=== PATIENT | female | born 1985 | race Two or more races ===

== ENCOUNTER 2017-03-27 07:29 | Inpatient (IN) | payer OTHER ==
[~2017-03-27] VITALS: Ht 157.5 cm; Wt 83.4 kg
[~2017-03-27 07:29] MED LIST: Pantoprazole Sodium Sesquihydr PO
[2017-03-27 08:06] LABS: Basophils # (auto) 0.1 uL; Basophils % (auto) 0.6 % (0.0-2.0); Eosinophils # (auto) 0.1 uL; Eosinophils % (auto) 0.7 % (0.0-7.0); Hematocrit 41.5 % (36.0-46.0); Hemoglobin 14.3 g/dL (12.2-16.2); Lymphocytes % (auto) 21.6 % (10.0-50.0); Mean Corpuscular Hgb Conc. 34.3 g/dL (32.0-36.0); Mean Corpuscular Volume 87.6 fL (80.0-100.0); Mean Platelet Volume 8.1 fL (6.9-10.8); Monocytes # (auto) 0.6 uL; Monocytes % (auto) 6.7 % (0.0-12.0); Neutrophils # (auto) 6.6 uL; Neutrophils % (auto) 70.4 % (37.0-80.0); Platelet Count (auto) 368 10^3/uL (140-450); Red Cell Distribution Width 12.7 % (11.8-14.3); White Blood Cell 9.3 10^3/uL (4.4-10.8)
[2017-03-27 08:14] LABS: Urine Bilirubin Negative (Negative); Urine Blood Negative /uL (Negative); Urine Color Yellow (Yellow); Urine Glucose Normal (Normal); Urine Ketone Negative (Negative); Urine Mucus FEW (None Seen); Urine Nitrite Negative (Negative); Urine RBC 4 /hpf (0 - 4); Urine Squamous Epithelial Cell MOD /hpf (<5); Urine Urobilinogen Normal (Negative); Urine pH 5.5 (5.0-8.0)
[2017-03-27] MEDS ORDERED: SODIUM CHLORIDE 0.9% 1,000 ML IVB ONE (08:14)
[2017-03-27] MEDS ORDERED: NALBUPHINE HCL 10 MG/1ml INJECTION IV ONE (08:15)
[2017-03-27] MEDS ORDERED: SODIUM CHLORIDE 0.9% 1,000 ML IV ONE (08:15)
[2017-03-27] MEDS ORDERED: PROMETHAZINE HCL 25 MG/ML 1ML IV ONE (08:15)
[2017-03-27 08:26] LABS: Albumin 3.8 g/dL (3.4-5.0); BUN/Creatinine Ratio 11.4; Bilirubin, Total 0.3 mg/dL (0.2-1.0); Calcium 9.1 mg/dL (8.5-10.1); Potassium 3.5 mmol/L (3.5-5.1); Total Protein 8.5 g/dL (6.4-8.2)
[2017-03-27] MEDS ORDERED: cefTRIAXone 1GM/50ML D5W 50 ML IV ONE (08:45)
[2017-03-27] MEDS ORDERED: PROCHLORPERAZINE EDISYLATE 5 MG/ML 2ML VIAL ONE (09:12)
[2017-03-27] MEDS ORDERED: PROCHLORPERAZINE EDISYLATE 5 MG/ML 2ML VIAL IV ONE ×2 (09:15→12:15)
[2017-03-27] MEDS ORDERED: TEMAZEPAM 15 MG CAP PO PRN (13:45)
[2017-03-27] MEDS ORDERED: LORazepam 0.5 MG TAB PO PRN (13:45)
[2017-03-27] MEDS ORDERED: ACETAMINOPHEN 500 MG TAB PO PRN (13:45)
[2017-03-27] MEDS: SODIUM CHLORIDE 0.9% 1,000 ML IV SCH ×2 (13:49→23:45)
[2017-03-27] MEDS: FAMOTIDINE (10MG/ML) 2ML VL IV SCH ×2 (13:52→23:46)
[2017-03-27 16:00] VITALS: BP 130/68
[2017-03-27 16:13] VITALS: BP 130/68
[2017-03-27] MEDS: metroNIDAZOLE 500MG/100ML 100 ML IV SCH ×2 (17:44→23:46)
[2017-03-27] MEDS: MORPHINE SULF INJ 2 MG/ML SYRINGE 1ML IV PRN (17:46)
[2017-03-27] MEDS: PROMETHAZINE HCL 25 MG/ML 1ML IV PRN (17:47)
[2017-03-27 22:00] VITALS: BP 121/74
[2017-03-28 05:00] VITALS: BP 95/55
[2017-03-28 05:23] LABS: Basophils # (auto) 0 uL; Basophils % (auto) 0.3 % (0.0-2.0); Eosinophils # (auto) 0 uL; Eosinophils % (auto) 0.1 % (0.0-7.0); Hematocrit 35.5 % (36.0-46.0); Hemoglobin 12.2 g/dL (12.2-16.2); Lymphocytes # (auto) 1.7 uL; Lymphocytes % (auto) 16.6 % (10.0-50.0); Mean Corpuscular Hemoglobin 30.1 pg (28.0-32.0); Mean Corpuscular Hgb Conc. 34.2 g/dL (32.0-36.0); Mean Corpuscular Volume 87.9 fL (80.0-100.0); Mean Platelet Volume 8.1 fL (6.9-10.8); Monocytes # (auto) 0.8 uL; Monocytes % (auto) 7.9 % (0.0-12.0); Neutrophils # (auto) 7.6 uL; Neutrophils % (auto) 75.1 % (37.0-80.0); Platelet Count (auto) 303 10^3/uL (140-450); Red Cell Distribution Width 12.4 % (11.8-14.3); White Blood Cell 10.1 10^3/uL (4.4-10.8)
[2017-03-28 05:42] LABS: BUN/Creatinine Ratio 16.2; Bilirubin, Total 0.6 mg/dL (0.2-1.0); Calcium 8.1 mg/dL (8.5-10.1); Potassium 3.2 mmol/L (3.5-5.1); Total Protein 6.5 g/dL (6.4-8.2)
[2017-03-28] MEDS: metroNIDAZOLE 500MG/100ML 100 ML IV SCH ×3 (06:19→18:23)
[2017-03-28 08:32] VITALS: BP 109/70
[2017-03-28] MEDS: cefTRIAXone 1GM/50ML D5W 50 ML IV SCH (09:14)
[2017-03-28] MEDS: MORPHINE SULF INJ 2 MG/ML SYRINGE 1ML IV PRN ×4 (09:14→22:47)
[2017-03-28] MEDS: PROMETHAZINE HCL 25 MG/ML 1ML IV PRN ×4 (09:14→22:47)
[2017-03-28] MEDS: SODIUM CHLORIDE 0.9% 1,000 ML IV SCH ×2 (09:39→19:39)
[2017-03-28] MEDS ORDERED: POTASSIUM CHLORIDE 20 MEQ, LIDOCAINE 1% (LOCAL ANESTH.) 2 ML in SODIUM CHL 0.9% 100 ML IV ONE (10:30)
[2017-03-28] MEDS: FAMOTIDINE (10MG/ML) 2ML VL IV SCH (13:45)
[2017-03-28 14:35] VITALS: BP 94/57
[2017-03-28] MEDS ORDERED: GOLYTELY 4L KIT PO ONE (16:00)
[2017-03-28] MEDS: HYDROcodone-ACET 5/325MG TAB PO PRN (16:52)
[2017-03-28 18:01] VITALS: BP 98/64
[2017-03-28] MEDS: PANTOPRAZOLE 40 MG TAB PO SCH (21:45)
[2017-03-28 22:00] VITALS: BP 101/60
[2017-03-29] MEDS: metroNIDAZOLE 500MG/100ML 100 ML IV SCH ×4 (00:30→18:49)
[2017-03-29] MEDS: SODIUM CHLORIDE 0.9% 1,000 ML IV SCH ×2 (00:48→15:39)
[2017-03-29] MEDS: PROMETHAZINE HCL 25 MG/ML 1ML IV PRN ×4 (04:09→18:50)
[2017-03-29] MEDS: MORPHINE SULF INJ 2 MG/ML SYRINGE 1ML IV PRN ×2 (04:09→09:31)
[2017-03-29 05:00] VITALS: BP 98/65
[2017-03-29 07:45] LABS: Basophils # (auto) 0 uL; Basophils % (auto) 0.5 % (0.0-2.0); Eosinophils # (auto) 0.2 uL; Eosinophils % (auto) 2.7 % (0.0-7.0); Hematocrit 36.1 % (36.0-46.0); Hemoglobin 11.9 g/dL (12.2-16.2); Lymphocytes # (auto) 1.7 uL; Lymphocytes % (auto) 23.9 % (10.0-50.0); Mean Corpuscular Hemoglobin 29.6 pg (28.0-32.0); Mean Corpuscular Hgb Conc. 33.1 g/dL (32.0-36.0); Mean Corpuscular Volume 89.5 fL (80.0-100.0); Monocytes # (auto) 0.7 uL; Monocytes % (auto) 9.4 % (0.0-12.0); Neutrophils # (auto) 4.4 uL; Neutrophils % (auto) 63.5 % (37.0-80.0); Nucleated Red Blood Cells % 0.1 %; Platelet Count (auto) 257 10^3/uL (140-450); Red Cell Distribution Width 13.1 % (11.8-14.3)
[2017-03-29 08:09] LABS: Albumin 2.9 g/dL (3.4-5.0); BUN/Creatinine Ratio 16.7; Bilirubin, Total 0.3 mg/dL (0.2-1.0); Calcium 7.6 mg/dL (8.5-10.1); Potassium 3.4 mmol/L (3.5-5.1); Total Protein 6.3 g/dL (6.4-8.2)
[2017-03-29 08:21] VITALS: BP 102/64
[2017-03-29 08:29] LABS: INR 1.02 (0.9-1.15); Partial Thromboplastin Time 22.3 sec (22.64-33.71); Prothrombin Time 11.1 sec (9.37-12.3)
[2017-03-29] MEDS: cefTRIAXone 1GM/50ML D5W 50 ML IV SCH (09:31)
[2017-03-29] MEDS: PANTOPRAZOLE 40 MG TAB PO SCH (09:31)
[2017-03-29] MEDS ORDERED: SODIUM CHLORIDE LOCK 10 ML ONE (10:27)
[2017-03-29] MEDS ORDERED: diphenhdrAMINE HCL 50 MG/1 ML VL ONE (10:27)
[2017-03-29] MEDS ORDERED: LIDOCAINE VISCOUS 2% 15ML UD ONE (10:27)
[2017-03-29] MEDS ORDERED: POTASSIUM CHLORIDE 20 MEQ, LIDOCAINE 1% (LOCAL ANESTH.) 2 ML in SODIUM CHL 0.9% 100 ML IV ONE (11:00)
[2017-03-29] MEDS: MIDAZOLAM HCL 5 MG/ML-1ML VIAL ONE ×3 (12:19→12:28)
[2017-03-29] MEDS: fentaNYL CITRATE 100 MCG/2 ML VL ONE ×3 (12:19→12:28)
[2017-03-29] MEDS ORDERED: fentaNYL CITRATE 100 MCG/2 ML VL ONE (12:28)
[2017-03-29] MEDS ORDERED: MIDAZOLAM HCL 5 MG/ML-1ML VIAL ONE (12:28)
[2017-03-29] MEDS: HYDROmorphone HCL 2 MG/ML VL IV PRN ×2 (14:52→18:50)
[2017-03-29 16:48] VITALS: BP 129/71
[2017-03-29 17:00] VITALS: BP 129/71
[2017-03-29 22:17] VITALS: BP 106/59
[2017-03-30] MEDS: HYDROmorphone HCL 2 MG/ML VL IV PRN ×3 (01:00→12:08)
[2017-03-30] MEDS: SODIUM CHLORIDE 0.9% 1,000 ML IV SCH ×2 (01:00→11:39)
[2017-03-30] MEDS: PANTOPRAZOLE 40 MG TAB PO SCH ×2 (01:01→10:36)
[2017-03-30] MEDS: metroNIDAZOLE 500MG/100ML 100 ML IV SCH ×3 (01:01→12:18)
[2017-03-30 05:10] VITALS: BP 115/71
[2017-03-30] MEDS: PROMETHAZINE HCL 25 MG/ML 1ML IV PRN ×2 (05:49→12:08)
[2017-03-30 05:55] LABS: Basophils # (auto) 0.1 uL; Basophils % (auto) 0.4 % (0.0-2.0); Eosinophils # (auto) 0 uL; Hematocrit 38.1 % (36.0-46.0); Hemoglobin 12.9 g/dL (12.2-16.2); Lymphocytes # (auto) 1.3 uL; Lymphocytes % (auto) 11.4 % (10.0-50.0); Mean Corpuscular Hemoglobin 29.3 pg (28.0-32.0); Mean Corpuscular Hgb Conc. 33.9 g/dL (32.0-36.0); Mean Corpuscular Volume 86.4 fL (80.0-100.0); Mean Platelet Volume 8.1 fL (6.9-10.8); Monocytes # (auto) 0.8 uL; Monocytes % (auto) 6.9 % (0.0-12.0); Neutrophils # (auto) 9.4 uL; Neutrophils % (auto) 81.3 % (37.0-80.0); Platelet Count (auto) 323 10^3/uL (140-450); Red Cell Distribution Width 12.3 % (11.8-14.3); White Blood Cell 11.6 10^3/uL (4.4-10.8)
[2017-03-30 06:36] LABS: Albumin 3.3 g/dL (3.4-5.0); BUN/Creatinine Ratio 16.7; Bilirubin, Total 0.6 mg/dL (0.2-1.0); Calcium 8.3 mg/dL (8.5-10.1); Potassium 3.6 mmol/L (3.5-5.1); Total Protein 7.4 g/dL (6.4-8.2)
[2017-03-30 07:52] VITALS: BP 110/68
[2017-03-30] MEDS: cefTRIAXone 1GM/50ML D5W 50 ML IV SCH (09:00)
[2017-03-30] MEDS: HYDROcodone-ACET 5/325MG TAB PO PRN (10:35)
[2017-03-30 10:43] VITALS: BP 110/68
[2017-03-30 11:46] VITALS: BP 129/84
== END 2017-03-30 16:10 | disposition home or self-care (01) | DRG 243 ==
LOC: ER 07:29 → OVERFLOW 07:30 → WEST WING 15:50
PROVIDERS: ADMIT Internal Medicine; ATTEND Internal Medicine
PROC: 0DJD8ZZ Inspection of Lower Intestinal Tract, Via Natural or Artificial Opening Endoscopic (ICD-10-PCS; principal; 2017-03-29 12:15)
PROC: 0DB68ZX Excision of Stomach, Via Natural or Artificial Opening Endoscopic, Diagnostic (ICD-10-PCS; 2017-03-29 12:15)
DX: K21.9 Gastro-esophageal reflux disease without esophagitis (principal); E44.0 Moderate protein-calorie malnutrition; K31.7 Polyp of stomach and duodenum; K29.00 Acute gastritis without bleeding; K52.9 Noninfective gastroenteritis and colitis, unspecified; N39.0 Urinary tract infection, site not specified; E87.6 Hypokalemia; E66.9 Obesity, unspecified; K42.9 Umbilical hernia without obstruction or gangrene; F41.9 Anxiety disorder, unspecified; G47.00 Insomnia, unspecified; Z68.33 Body mass index [BMI] 33.0-33.9, adult; Z90.49 Acquired absence of other specified parts of digestive tract
CPT/HCPCS: 36415; 43239; 45378; 74176; 80053; 80307; 81001; 81025; 82150; 83690; 83735; 85025; 85610; 85652; 85730; 86141; 87040; 87045; 87086; 87493; 87899; 93005; 96361; 96365; 96375; J0696; J2001; J2250; J3490

== ENCOUNTER 2017-04-06 17:54 | Emergency (ER) | payer OTHER ==
[~2017-04-06] VITALS: Ht 160 cm; Wt 81.6 kg
[2017-04-06 23:14] LABS: Basophils # (auto) 0.1 uL; Eosinophils # (auto) 0.3 uL; Eosinophils % (auto) 5.2 % (0.0-7.0); Hematocrit 36.5 % (36.0-46.0); Hemoglobin 12.2 g/dL (12.2-16.2); Lymphocytes # (auto) 1.9 uL; Lymphocytes % (auto) 29.5 % (10.0-50.0); Mean Corpuscular Hemoglobin 29.4 pg (28.0-32.0); Mean Corpuscular Hgb Conc. 33.4 g/dL (32.0-36.0); Mean Corpuscular Volume 87.9 fL (80.0-100.0); Mean Platelet Volume 8.5 fL (6.9-10.8); Monocytes # (auto) 0.6 uL; Monocytes % (auto) 8.6 % (0.0-12.0); Neutrophils # (auto) 3.6 uL; Neutrophils % (auto) 55.7 % (37.0-80.0); Platelet Count (auto) 358 10^3/uL (140-450); White Blood Cell 6.4 10^3/uL (4.4-10.8)
[2017-04-06 23:16] LABS: Urine Bilirubin Negative (Negative); Urine Blood Negative /uL (Negative); Urine Color Yellow (Yellow); Urine Glucose Normal (Normal); Urine Ketone Negative (Negative); Urine Nitrite Negative (Negative); Urine RBC 3 /hpf (0 - 4); Urine Squamous Epithelial Cell MOD /hpf (<5); Urine Urobilinogen Normal (Negative); Urine pH 6.5 (5.0-8.0)
[2017-04-06 23:27] LABS: Albumin 3.4 g/dL (3.4-5.0); BUN/Creatinine Ratio 18.5; Bilirubin, Total 0.2 mg/dL (0.2-1.0); Calcium 8.7 mg/dL (8.5-10.1); Potassium 3.9 mmol/L (3.5-5.1); Total Protein 7.3 g/dL (6.4-8.2); Uric Acid 4.6 mg/dL (2.6-6.0)
[2017-04-07 00:02] VITALS: BP 110/73
== END 2017-04-07 03:40 | disposition left against medical advice (07) ==
LOC: ER 18:18
DX: M79.89 Other specified soft tissue disorders (principal); M79.605 Pain in left leg; R73.9 Hyperglycemia, unspecified; N39.0 Urinary tract infection, site not specified
CPT/HCPCS: 36415; 80053; 81001; 84550; 85025; 93971

== ENCOUNTER 2018-05-26 19:30 | Emergency (ER) | payer OTHER ==
[~2018-05-26] VITALS: Ht 157.5 cm; Wt 92.5 kg
[2018-05-26] MEDS ORDERED: HCTZ 25 MG TAB PO ONE (20:15)
[2018-05-26 21:25] LABS: Basophils # (auto) 0.1 uL; Eosinophils # (auto) 0.3 uL; Eosinophils % (auto) 5.1 % (0.0-7.0); Hematocrit 37.5 % (36.0-46.0); Hemoglobin 12.6 g/dL (12.2-16.2); Lymphocytes # (auto) 1.8 uL; Lymphocytes % (auto) 34.9 % (10.0-50.0); Mean Corpuscular Hemoglobin 29.7 pg (28.0-32.0); Mean Corpuscular Hgb Conc. 33.7 g/dL (32.0-36.0); Mean Corpuscular Volume 88.2 fL (80.0-100.0); Monocytes # (auto) 0.6 uL; Monocytes % (auto) 11.5 % (0.0-12.0); Neutrophils # (auto) 2.4 uL; Neutrophils % (auto) 47.5 % (37.0-80.0); Nucleated Red Blood Cells % 0.1 %; Platelet Count (auto) 306 10^3/uL (140-450); Red Blood Cells 4.25 10^6/uL (4.0-5.20); Red Cell Distribution Width 13.3 % (11.8-14.3); White Blood Cell 5.1 10^3/uL (4.4-10.8)
[2018-05-26 21:33] LABS: Alanine Aminotransferase 42 U/L (13-56); Anion Gap 6 (5-15); Aspartate Aminotransferase 30 U/L (15-37); BUN/Creatinine Ratio 12.2; Blood Urea Nitrogen 6 mg/dL (7-18); Calcium 8.2 mg/dL (8.5-10.1); Carbon Dioxide 26 mmol/L (21-32); Chloride 108 mmol/L (98-107); GFR African American 189 mL/min; GFR Non-African American 157 mL/min; Glucose 158 mg/dL (74-106); Magnesium 2.3 mg/dL (1.6-2.6); Potassium 3.7 mmol/L (3.5-5.1); Sodium 140 mmol/L (136-145)
[2018-05-26 21:38] LABS: Alkaline Phosphatase 143 U/L (45-117); Bilirubin, Total 0.2 mg/dL (0.2-1.0); Total Protein 6.7 g/dL (6.4-8.2)
[2018-05-26 21:39] LABS: INR 0.91 (0.9-1.15); Partial Thromboplastin Time 26.1 sec (23.78-33.04); Prothrombin Time 9.8 sec (9.27-12.13)
[2018-05-27 00:06] LABS: Urine Bacteria NONE SEEN /hpf (None Seen); Urine Blood Negative /uL (Negative); Urine Specific Gravity 1.013 (1.001-1.035); Urine WBC 15 /hpf (0 - 5)
[2018-05-27 01:27] VITALS: BP 93/59
== END 2018-05-27 01:39 | disposition home or self-care (01) ==
LOC: ER 19:32
DX: M79.89 Other specified soft tissue disorders (principal); E88.09 Other disorders of plasma-protein metabolism, not elsewhere classified; Z90.49 Acquired absence of other specified parts of digestive tract
CPT/HCPCS: 36415; 71046; 80053; 81001; 83735; 83880; 84443; 84484; 85025; 85610; 85730; 93971

== ENCOUNTER 2019-07-02 13:46 | Emergency (ER) | payer OTHER ==
[~2019-07-02] VITALS: Ht 162.6 cm; Wt 68.0 kg
[2019-07-02 14:22] VITALS: BP 112/80
[2019-07-02] MEDS ORDERED: HYDROcodone-ACET 10/325MG TAB PO ONE (14:30)
[2019-07-02 14:56] LABS: Basophils # (auto) 0.1 uL; Basophils % (auto) 0.9 % (0.0-2.0); Eosinophils # (auto) 0.1 uL; Eosinophils % (auto) 1.2 % (0.0-7.0); Hemoglobin 13.5 g/dL (12.2-16.2); Lymphocytes # (auto) 1.5 uL; Mean Corpuscular Hemoglobin 30.1 pg (28.0-32.0); Mean Corpuscular Hgb Conc. 33.8 g/dL (32.0-36.0); Mean Corpuscular Volume 88.9 fL (80.0-100.0); Monocytes % (auto) 10.6 % (0.0-12.0); Neutrophils # (auto) 6.7 uL; Neutrophils % (auto) 71.3 % (37.0-80.0); Platelet Count (auto) 380 10^3/uL (140-450); Red Cell Distribution Width 12.7 % (11.8-14.3); White Blood Cell 9.3 10^3/uL (4.4-10.8)
[2019-07-02] MEDS ORDERED: KETOROLAC TROMETH 60MG/2ML VIAL IM ONE (15:30)
[2019-07-02 15:32] LABS: Albumin 3.2 g/dL (3.4-5.0); Potassium 3.8 mmol/L (3.5-5.1)
[2019-07-02 15:40] LABS: BUN/Creatinine Ratio 17.9; Bilirubin, Total 0.2 mg/dL (0.2-1.0); Calcium 9.5 mg/dL (8.5-10.1); Total Protein 8.3 g/dL (6.4-8.2)
== END 2019-07-02 15:10 | disposition left against medical advice (07) ==
LOC: EDUNIT# 13:46 → ER 13:57
DX: M79.601 Pain in right arm (principal); F17.210 Nicotine dependence, cigarettes, uncomplicated; F12.10 Cannabis abuse, uncomplicated; F15.10 Other stimulant abuse, uncomplicated; Z90.89 Acquired absence of other organs
CPT/HCPCS: 36415; 80053; 85025

== ENCOUNTER 2019-07-02 17:32 | Emergency (ER) | payer OTHER ==
[~2019-07-02] VITALS: Ht 157.5 cm; Wt 65.8 kg
[2019-07-02] MEDS ORDERED: MORPHINE SULF INJ 2 MG/ML SYRINGE 1ML IM ONE (20:15)
[2019-07-02] MEDS ORDERED: LORazepam 2MG/ML-1ML VIAL IM ONE ×2 (21:45→22:00)
[2019-07-02 23:01] LABS: Basophils # (auto) 0.1 uL; Basophils % (auto) 0.7 % (0.0-2.0); Eosinophils # (auto) 0.2 uL; Eosinophils % (auto) 1.8 % (0.0-7.0); Hemoglobin 12.4 g/dL (12.2-16.2); Lymphocytes # (auto) 2.1 uL; Lymphocytes % (auto) 20.5 % (10.0-50.0); Mean Corpuscular Hemoglobin 29.5 pg (28.0-32.0); Mean Corpuscular Hgb Conc. 33.4 g/dL (32.0-36.0); Mean Corpuscular Volume 88.2 fL (80.0-100.0); Monocytes # (auto) 1.2 uL; Monocytes % (auto) 11.1 % (0.0-12.0); Neutrophils # (auto) 6.9 uL; Neutrophils % (auto) 65.9 % (37.0-80.0); Platelet Count (auto) 372 10^3/uL (140-450); Red Blood Cells 4.19 10^6/uL (4.0-5.20); Red Cell Distribution Width 12.6 % (11.8-14.3); White Blood Cell 10.4 10^3/uL (4.4-10.8)
[2019-07-02 23:26] LABS: Alanine Aminotransferase 29 U/L (13-56); Albumin 2.9 g/dL (3.4-5.0); Amylase 31 U/L (25-115); Anion Gap 10 (5-15); Aspartate Aminotransferase 16 U/L (15-37); BUN/Creatinine Ratio 23.7; Blood Urea Nitrogen 14 mg/dL (7-18); Calcium 8.5 mg/dL (8.5-10.1); Carbon Dioxide 20 mmol/L (21-32); Chloride 107 mmol/L (98-107); GFR African American 152 mL/min; GFR Non-African American 126 mL/min; Glucose 86 mg/dL (74-106); Lipase 82 U/L (73-393); Potassium 3.5 mmol/L (3.5-5.1); Sodium 137 mmol/L (136-145)
[2019-07-02 23:32] LABS: Alkaline Phosphatase 125 U/L (45-117); Bilirubin, Total 0.3 mg/dL (0.2-1.0); CRP High Sensitivity < 0.016 mg/dL (< 0.3); Total Protein 7.9 g/dL (6.4-8.2)
[2019-07-03] MEDS ORDERED: ONDANSETRON HCL 4 MG/2 ML VIAL IV ONE
[2019-07-03] MEDS ORDERED: MORPHINE SULF INJ 2 MG/ML SYRINGE 1ML IV ONE
[2019-07-03] MEDS ORDERED: IOHEXOL 350 MG/ML 100ML IJ ONE (00:01)
[2019-07-03] MEDS ORDERED: MORPHINE SULFATE 4 MG/ML SYR/VIAL IV ONE (02:00)
[2019-07-03] MEDS ORDERED: ENOXAPARIN SOD 60 MG/0.6 ML SYRINGE SC ONE (02:00)
[2019-07-03 02:39] VITALS: BP 101/65
[2019-07-03] MEDS ORDERED: cefTRIAXone 1GM/50ML D5W 50 ML IV ONE ×2 (02:45→03:23)
== END 2019-07-03 04:34 | disposition home or self-care (01) ==
LOC: ER 17:32
DX: I82.611 Acute embolism and thrombosis of superficial veins of right upper extremity (principal); L03.113 Cellulitis of right upper limb; F19.10 Other psychoactive substance abuse, uncomplicated
CPT/HCPCS: 36415; 71045; 71275; 80053; 82150; 83036; 83605; 83690; 84484; 84702; 85025; 85379; 85652; 86141; 87040; 93005; 96365; 96372; 96375; 96376; 99284; J0696; J1650; J2060; J2270; J2405; 93971